=== PATIENT | female | born 1950 | race African-American/Black ===

== ENCOUNTER 2017-03-01 04:07 | Inpatient (IN) | payer OTHER ==
[~2017-03-01] VITALS: Ht 162.6 cm; Wt 147.0 kg
[~2017-03-01 04:07] MED LIST: ATOR-2 PO; BUPROPION; FURO20TA4 PO; GABA800T PO; GLIP5TAB12 PO; HYDR-3933 PO; LORA0.5T2 PO; MELA3TAB PO; PROAIR INHALER; TRAZADONE PO; [UNRECOGNIZED DRUG - OTHER] PO
[2017-03-01] MEDS ORDERED: IPRATROPIUM BROMIDE (0.02%) 0.5MG/2.5ML NEB HHN STA (04:32)
[2017-03-01] MEDS ORDERED: ALBUTEROL (0.083%) 2.5MG/3ML NEB HHN STA (04:32)
[2017-03-01] MEDS ORDERED: METHYLPREDNISOLONE SOD SUCC 125 MG/2 ML VIAL IV STA (04:32)
[2017-03-01 05:04] LABS: BASOPHILS % 0.6 % (0.0-2.0); EOSINOPHILS % 1.6 % (0.0-5.0); HEMOGLOBIN. 9.5 g/dL (12.0-16.0); LYMPHOCYTES % 12.1 % (20.0-50.0); MEAN CORPUSCULAR HEMOGLOBIN 24.9 pg (28.0-32.0); MEAN CORPUSCULAR VOLUME 81.6 fL (81.0-99.0); MEAN PLATELET VOLUME 9.1 fl (7.4-10.4); MONOCYTES % 6.9 % (2.0-8.0); NEUTROPHILS % 78.8 % (40.0-76.0); PLATELET 238 x1000/uL (130-400)
[2017-03-01 05:10] LABS: INR 1.3; PARTIAL THROMBOPLASTIN TIME 38.1 sec (24.0-34.0); PROTHROMBIN TIME 13.1 sec
[2017-03-01 05:11] LABS: BG BASE EXCESS 10.8 mmol/L (-2.0-2.0); BG CARBOXYHEMOGLOBIN 1.1 % (0.5-1.5); BG DEOXYHEMOGLOBIN 2.2 % (0.0-5.0); BG FRACTION INSPIRED OXYGEN 36; BG OXYGEN SATURATION 97.8 % (92.0-98.5); BG OXYHEMOGLOBIN 96.7 % (94.0-97.0); BG PCO2 75.4 mmHg (35.0-45.0); BG PH 7.331 (7.350-7.450); BG PO2 129.8 mmHg (75.0-100.0); BG SAMPLE SITE LEFT RADIAL; BG TOTAL HEMOGLOBIN 10.4 g/dL (12.0-18.0)
[2017-03-01 05:19] LABS: CARBON DIOXIDE 38 mEq/L (21-32); CHLORIDE 97 mEq/L (98-107); TROPONIN I < 0.02 ng/mL (0.00-0.04)
[2017-03-01] MEDS ORDERED: AZITHROMYCIN 500 MG in DEXT 5% WATER 250 ML IV SCH (05:45)
[2017-03-01] MEDS ORDERED: CEFTRIAXONE 2 G PREMIX 50 ML IV ONE (05:45)
[2017-03-01] MEDS ORDERED: MAGNESIUM/ALUMINUM HYDROXIDE/SIMETHICONE 30ML UDC PO PRN (06:30)
[2017-03-01] MEDS ORDERED: ACETAMINOPHEN 325MG TABLET PO PRN (06:30)
[2017-03-01] MEDS ORDERED: DIPHENHYDRAMINE 50MG/ML VIAL IV PRN (06:30)
[2017-03-01] MEDS ORDERED: ONDANSETRON HCL 4MG/2ML VIAL IV PRN (06:30)
[2017-03-01] MEDS ORDERED: DEXTROSE 50% WATER 50ML SYRINGE IV PRN (06:30)
[2017-03-01] MEDS ORDERED: GUAIFENESIN 200MG/10ML SUGAR FREE UDC PO PRN (06:30)
[2017-03-01] MEDS ORDERED: INSULIN LISPRO 100 UNITS/ML SUBCUT SCH (07:40)
[2017-03-01] MEDS: BLOOD SUGAR DIAGNOSTIC STRIP TEST SCH ×4 (08:16→21:29)
[2017-03-01] MEDS ORDERED: INSULIN DETEMIR UD 100 UNITS/ML SYR SUBCUT SCH (10:00)
[2017-03-01] MEDS: ENOXAPARIN 40MG/0.4ML SYR SUBCUT SCH ×2 (10:32→21:57)
[2017-03-01] MEDS: LEVOFLOXACIN 500MG PREMIX 100 ML IV SCH (10:33)
[2017-03-01] MEDS: INSULIN LISPRO 100 UNITS/ML SUBCUT SCH ×3 (11:39→22:16)
[2017-03-01 12:12] LABS: BG BASE EXCESS 5.1 mmol/L (-2.0-2.0); BG BILEVEL POS AIRWAY PRESSURE 15/5; BG CARBOXYHEMOGLOBIN 1.3 % (0.5-1.5); BG DEOXYHEMOGLOBIN 2.4 % (0.0-5.0); BG FRACTION INSPIRED OXYGEN 40; BG METHEMOGLOBIN 0.2 % (0.0-1.5); BG OXYGEN SATURATION 97.6 % (92.0-98.5); BG OXYHEMOGLOBIN 96.1 % (94.0-97.0); BG PCO2 60.6 mmHg (35.0-45.0); BG PH 7.341 (7.350-7.450); BG PO2 107.5 mmHg (75.0-100.0); BG SAMPLE SITE RIGHT BRACHIAL; BG TOTAL HEMOGLOBIN 10.2 g/dL (12.0-18.0); BG VENT MODE MASK - BIPAP; BG VENT RATE 20 set
[2017-03-01] MEDS: IPRATROPIUM/ALBUTEROL 0.5-3(2.5)MG/3ML NEB HHN SCH ×3 (12:58→20:46)
[2017-03-01] MEDS: SODIUM CHLORIDE 0.9% INJ 3ML FLUSH IVF SCH ×2 (13:12→23:43)
[2017-03-01] MEDS: METHYLPREDNISOLONE SOD SUCC 125 MG/2 ML VIAL IV SCH ×2 (14:14→21:55)
[2017-03-01] MEDS: CLONIDINE 0.1MG TABLET PO PRN (14:23)
[2017-03-01] MEDS: LOSARTAN POTASSIUM 50 MG TABLET PO SCH (17:38)
[2017-03-01] MEDS: AMLODIPINE 10MG TABLET PO SCH (17:38)
[2017-03-01] MEDS ORDERED: ZOLPIDEM TARTRATE 5MG TABLET PO PRN ×2 (22:00)
[2017-03-02] MEDS: CLONIDINE 0.1MG TABLET PO PRN ×2 (00:17→22:22)
[2017-03-02] MEDS: IPRATROPIUM/ALBUTEROL 0.5-3(2.5)MG/3ML NEB HHN SCH ×6 (00:53→20:45)
[2017-03-02] MEDS: SODIUM CHLORIDE 0.9% INJ 3ML FLUSH IVF SCH ×3 (05:59→21:04)
[2017-03-02] MEDS: BLOOD SUGAR DIAGNOSTIC STRIP TEST SCH ×4 (05:59→21:04)
[2017-03-02] MEDS: METHYLPREDNISOLONE SOD SUCC 125 MG/2 ML VIAL IV SCH ×3 (06:01→21:04)
[2017-03-02] MEDS: INSULIN LISPRO 100 UNITS/ML SUBCUT SCH ×4 (06:07→21:05)
[2017-03-02] MEDS: LOSARTAN POTASSIUM 50 MG TABLET PO SCH (08:53)
[2017-03-02] MEDS: AMLODIPINE 10MG TABLET PO SCH (08:53)
[2017-03-02] MEDS: ENOXAPARIN 40MG/0.4ML SYR SUBCUT SCH ×2 (08:54→21:04)
[2017-03-02] MEDS: LEVOFLOXACIN 500MG PREMIX 100 ML IV SCH (10:25)
[2017-03-02] MEDS ORDERED: INSULIN DETEMIR UD 100 UNITS/ML SYR SUBCUT SCH (11:30)
[2017-03-02 12:24] LABS: BG BASE EXCESS 7.5 mmol/L (-2.0-2.0); BG BILEVEL POS AIRWAY PRESSURE 15/5; BG DEOXYHEMOGLOBIN 2.2 % (0.0-5.0); BG FRACTION INSPIRED OXYGEN 40; BG HCO3 ACT 33.3 mmol/L (22.0-26.0); BG METHEMOGLOBIN 0.3 % (0.0-1.5); BG OXYGEN SATURATION 97.8 % (92.0-98.5); BG OXYHEMOGLOBIN 96.5 % (94.0-97.0); BG PCO2 53.8 mmHg (35.0-45.0); BG SAMPLE SITE LEFT RADIAL; BG TOTAL HEMOGLOBIN 10.2 g/dL (12.0-18.0); BG VENT MODE MASK - BIPAP; BG VENT RATE 20 set
[2017-03-02] MEDS ORDERED: INSULIN DETEMIR UD 100 UNITS/ML SYR SUBCUT ONE (13:00)
[2017-03-02 22:00] VITALS: BP 181/84
[2017-03-03] MEDS ORDERED: INSULIN DETEMIR UD 100 UNITS/ML SYR SUBCUT SCH (10:00)
== END 2017-03-02 22:41 | disposition short-term general hospital (02) | DRG 189 ==
LOC: ER 04:41 → 3WST 05:44 → ENRESERV 07:32
PROVIDERS: ADMIT Internal Medicine; ATTEND Internal Medicine
PROC: 5A09357 Assistance with Respiratory Ventilation, Less than 24 Consecutive Hours, Continuous Positive Airway Pressure (ICD-10-PCS; principal; 2017-03-01)
DX: J96.02 Acute respiratory failure with hypercapnia (principal); J44.1 Chronic obstructive pulmonary disease with (acute) exacerbation; J84.9 Interstitial pulmonary disease, unspecified; I50.32 Chronic diastolic (congestive) heart failure; D72.829 Elevated white blood cell count, unspecified; E11.9 Type 2 diabetes mellitus without complications; E66.01 Morbid (severe) obesity due to excess calories; F41.1 Generalized anxiety disorder; G47.30 Sleep apnea, unspecified; I11.0 Hypertensive heart disease with heart failure; I25.10 Atherosclerotic heart disease of native coronary artery without angina pectoris; Z99.81 Dependence on supplemental oxygen; Z82.49 Family history of ischemic heart disease and other diseases of the circulatory system; Z87.891 Personal history of nicotine dependence
CPT/HCPCS: 36415; 36600; 71010; 80053; 82375; 82805; 82962; 83605; 83690; 83880; 84484; 85025; 85610; 85730; 87040; 93005; 94640; 94660; 96365; 96375; 99291; A6261; J0456; J0696; J1650; J1815; J1956; J2930; J7060; J7611; J7620